=== PATIENT | male | born 1960 | race Caucasian/White ===

== ENCOUNTER 2020-08-05 11:33 | Emergency (ER) | payer MEDICAID, SELFPAY ==
[2020-08-05] VITALS (23 sets, daily range): BP systolic 123–220; BP diastolic 67–108; PULSE 80–102; RESP 16–23; TEMP 36.6; O2SAT 92–100; BMI 33.0
--- NOTE | 2020-08-05 11:42 | DI.RAD.S_ITS ---
PROCEDURE: XR CHEST 1V INDICATIONS: chest pain TECHNIQUE: One view of the chest was acquired. COMPARISON: None. FINDINGS: Surgical changes and devices: None. Lungs and pleura: Scattered subsegmental scarring and/or atelectasis. No acute consolidation. No pleural effusions or pneumothorax. Mediastinum: Mediastinal contours appear normal. Heart size is normal. Bones and chest wall: No suspicious bony lesions. Overlying soft tissues appear unremarkable. IMPRESSION: No acute disease. Dictated by: Jonas Woo M.D. on 08/05/2020 at 12:21 Approved by: Jonas Woo M.D. on 08/05/2020 at 12:21
[2020-08-05 11:51] LABS: Add Manual Diff / Slide Review NO; Basophils Absolute Auto 100 /uL (0-100); Basophils Percent Auto 1.3 % (0-2); Eosinophils Absolute Auto 100 /uL (0-450); Eosinophils Percent Auto 1.3 % (2-4); Hematocrit 53.4 % (41-53); Hemoglobin 18.3 g/dL (13.5-17.5); Lymphocytes Absolute Auto 1500 /uL (1100-4500); Lymphocytes Percent Auto 16.1 % (25-40); Mean Corpuscular HGB Conc 34.4 % (30-36); Mean Corpuscular Hemoglobin 33.8 PG (26-34); Mean Corpuscular Volume 98.3 fL (80-100); Monocytes Absolute Auto 700 /uL (0-900); Monocytes Percent Auto 7.9 % (3-14); Neutrophils Absolute Auto 6800 /uL (1500-7000); Neutrophils Percent Auto 73.4 % (50-75); Platelet Count 293 X10^3/uL (150-400); Red Blood Cell Count 5.43 X10^6/uL (4.5-5.9); Red Cell Distribution Width 14.4 % (11.6-14.8); White Blood Cell Count 9.3 X10^3/uL (4.5-11.0)
[2020-08-05 11:56] LABS: Prothrombin Time 11.7 SECONDS (10.1-12.7)
[2020-08-05] MEDS: ASPIRIN 81 MG CHEW TAB 324 MG PO (11:56)
[2020-08-05] MEDS: NITROGLYCERIN 0.4 MG SL TAB SL ×2 (11:56→12:24)
[2020-08-05 11:59] LABS: PTT Partial Thromboplastin Tim 34 SECONDS (26.4-36.2)
[2020-08-05 12:01] LABS: Alanine Aminotransferase 180 IU/L (<50); Albumin 4.6 g/dL (3.5-5.0); Albumin Globulin Ratio 1.2 (1.0-2.8); Alkaline Phosphatase 96 U/L (38-126); Aspartate Aminotransferase 95 IU/L (17-59); Bilirubin Total 0.7 mg/dL (0.2-1.3); Blood Urea Nitrogen 4 mg/dL (9-20); Calcium 9.9 mg/dL (8.4-10.2); Carbon Dioxide 24 mmol/L (22-32); Chloride 101 mmol/L (98-107); Creatine Kinase 75 U/L (55-170); Estimated Glomerular Filt Rate > 60.0 mL/min (>60); Globulin 3.9 g/dL (1.7-4.1); Glucose 122 mg/dL (70-100); HEMOLYSIS 24 (0-50); Lipase 73 U/L (23-300); Potassium 4.2 mmol/L (3.4-5.1); Sodium 135 mmol/L (137-145); Total Protein 8.5 g/dL (6.3-8.2)
[2020-08-05 12:12] LABS: NT-proBNP (BNP-Adult 18+) 62 pg/mL (<125); Troponin I < 0.012 ng/mL (0.01-0.034)
[2020-08-05 12:57] LABS: COVID19 - ADMIT (NP swab/PCR) Negative (Negative)
--- NOTE | 2020-08-05 13:38 | ED_ITS ---
HPI - Chest Pain General Chief Complaint: Chest Pain Stated Complaint: hypotensive, sent from [facility] Time Seen by Provider: 08/05/20 11:44 Source: patient Mode of arrival: Wheelchair Limitations: no limitations History of Present Illness HPI narrative: A 59-year-old male comes with complaint of chest pain/pressure that his been going on for the last several weeks. Patient states he has been waking up with sleep but also occurs during the daytime. It is worse with exertion but can happen while he is resting as well. Patient states he will have chest pressure his anterior chest occasionally goes to his left upper extremity but is usually just the anterior chest. He will feel short of breath. Be nauseated with diaphoresis. Patient has not any syncopal episodes. He initially denies any abdominal pain but on palpation is quite tender. He states that it has been going on for weeks if not months. He does wake up from sleep sometimes diaphoretic and feels like he has soaked through with sweat. Patient has not had any objective fevers but has had subjective fevers. He denies any cough cold or congestion. Patient denies any diarrhea or constipation. He denies any bright red blood or melanotic stools he denies any urinary symptoms. Patient does not follow up with a physician regularly last annual visit was in 1979. He has not any prior surgeries. Has not any daily medications. No allergies to medications. Depending on if he is working or staying home is half pack to pack and half daily his alcohol intake the a 6 pack weekly when he is working regularly up to a six-pack nightly when he is home. Denies any illicit. Patient does have family history of his mother having a ?hole in her heart?. His dad had multiple heart attacks with the 1st being at age 68. Patient is accompanied by his spouse. Related Data Home Medications Medication Instructions Recorded Confirmed [id number] 250 2 tab PO Q6H PRN 11/08/17 11/08/17 mg-250 mg-65 mg tablet Previous Rx's Medication Instructions Recorded oxycodone 5 mg tablet 5 mg PO Q4-6H PRN #10 tab 11/08/17 amlodipine 5 mg PO DAILY #30 tab 08/05/20 atorvastatin 20 mg PO BEDTIME #30 tab 08/05/20 Allergies Allergy/AdvReac Type Severity Reaction Status Date / Time codeine Allergy Verified 08/05/20 11:42 Review of Systems Review of Systems ROS Unobtainable: All systems reviewed & are unremarkable except as noted in HPI and below Patient History Social History Smoking Status: Current every day smoker alcohol intake: current Smoking Status: Current every day smoker alcohol intake frequency: holidays/special occasions only Substance Use Type: does not use Exam Narrative Exam Narrative: GENERAL: Alert and oriented x three, obese male in mild dist ress. HEENT: Head normocephalic, atraumatic, EOMI, pupils reactive, face symmetric, moist mucous membranes NECK: Supple, full range of motion CARDIOVASCULAR: Regular rate and rhythm without murmurs, rubs or gallops. JVD. No swelling bilateral lower extremities. RESPIRATORY: Breath sounds equal bilaterally, no wheezes rales or rhonchi. No tachypnea or accessory muscle uses ABDOMEN: Soft, patient has significant generalized abdominal tenderness. Normoactive bowel sounds all 4 quadrants. No guarding or rebound, rigidity, no mass. : No CVA tenderness EXTREMITIES: Normal range of motion, no clubbing or edema. Neurovascularly intact NEUROLOGICAL: Cranial nerves II through XII grossly intact. Moving all extremities SKIN: Warm, dry, no petechiae, no rashes or lesions. Initial Vital Signs Initial Vital Signs: Vital Signs Temperature 97.8 F 08/05/20 11:35 Pulse Rate 101 H 08/05/20 11:35 Respiratory Rate 22 08/05/20 11:35 Blood Pressure 220/108 H 08/05/20 11:35 Pulse Oximetry 100 08/05/20 11:35 Scores HEART Score Heart Score history: Highly Suspicious Heart Score EKG: Normal Heart Score Age: 45-64 years old Heart Score risk factors: 1-2 risk factors Heart Score troponin: < or = to normal limit Heart Score Total: 4 Course Orders Ordered: ED Orders 08/05/20 11:40 BNP [NT-proBNP (BNP-Adult 18+)] Stat Complete Blood Count AUTO DIFF Stat Comprehensive Metabolic Panel Stat Lipase Stat Partial Thromboplastin Time Stat Prothrombin Time INR Stat Troponin & CK Cardiac Panel Stat 08/05/20 11:42 XR chest 1V Stat EKG-12 Lead Stat 08/05/20 12:00 COVID19 - ADMIT ([employer] swab/PCR) Stat 08/05/20 14:05 CT angio chest abdomen pelvis Stat 08/05/20 14:06 EKG-12 Lead Stat 08/05/20 14:23 Troponin I Stat Discontinued Medications Aspirin (Aspirin 81 Mg Chew Tab) 324 mg PO NOW ONE Stop: 08/05/20 11:43 Last Admin: 08/05/20 11:56 Dose: 324 mg Documented by: YASMANY Atorvastatin Calcium (Atorvastatin 20 Mg Tablet) 80 mg PO NOW ONE Stop: 08/05/20 16:28 Last Admin: 08/05/20 17:13 Dose: 80 mg Documented by: ISMAEL Metoprolol Succinate (Metoprolol Er 25 Mg Tablet) 25 mg PO NOW ONE Stop: 08/05/20 16:28 Last Admin: 08/05/20 17:13 Dose: 25 mg Documented by: ISMAEL Nitroglycerin (Nitroglycerin 0.4 Mg Sl Tab) 0.4 mg SL [id number] PRN PRN Reason: Chest Pain Last Admin: 08/05/20 12:24 Dose: 0.4 mg Documented by: Admin: 08/05/20 11:56 Dose: 0.4 mg Documented by: YASMANY Nitroglycerin (Nitroglycerin Oint 1 Inch/Gm Oint...G.) 0.5 inch TOP NOW ONE Stop: 08/05/20 14:06 Last Admin: 08/05/20 14:25 Dose: 0.5 inch Documented by: YASMANY Reevaluation(s) Reevaluation #1: Better with nitro and nitropaste. Reviewed imaging. Patient's mass noted on CT angiography in the neck is aware that this is present. Unclear if he has ever had a workup but was encouraged to have this he was not aware of the renal system but was updated. Time: 16:18 Consultations Consultation #1: Dr. Carrasco recommends transfer to [facility]. Heparin gtt, ASA, Beta gaby, statin. Time: 16:27 Consultation #2: Dr. Villatoro Cardiology agrees with plan for transfer as we cannot stress test patient here over the weekend. He is equivocal in terms of starting heparin drip. Plan to chat with hospitalist and transfer. Time: 16:37 Consultation #3: Dr. Ross, hospitalist at [facility] accepts for transfer. Discussed cardiology's recommendations about heparin drip. Will defer and hold off this time. Time: 16:50 Vital Signs Vital signs: Vital Signs - 8 hr 08/05/20 11:35 08/05/20 11:41 08/05/20 11:48 Temperature 97.8 F Pulse Rate 101 H 102 H 93 H Respiratory Rate 22 20 20 Blood Pressure 220/108 H 172/92 H Pulse Oximetry 100 98 96 08/05/20 11:56 08/05/20 12:00 08/05/20 12:15 Temperature Pulse Rate 94 H 95 H 95 H Respiratory Rate 20 18 Blood Pressure 172/92 H 172/99 H 137/83 Pulse Oximetry 94 93 08/05/20 12:24 08/05/20 12:30 08/05/20 12:45 Temperature Pulse Rate 80 97 H 92 H Respiratory Rate 18 20 Blood Pressure 137/83 128/91 H 130/77 Pulse Oximetry 94 94 08/05/20 13:13 08/05/20 13:14 08/05/20 13:30 Temperature Pulse Rate 88 87 85 Respiratory Rate 19 20 Blood Pressure 123/84 125/67 Pulse Oximetry 92 93 93 08/05/20 14:00 08/05/20 14:25 08/05/20 14:30 Temperature Pulse Rate 89 90 82 Respiratory Rate 17 19 Blood Pressure 148/89 H 130/74 Pulse Oximetry 94 96 08/05/20 15:00 08/05/20 15:42 08/05/20 16:00 Temperature Pulse Rate 85 83 83 Respiratory Rate 23 16 20 Blood Pressure Pulse Oximetry 94 97 93 08/05/20 16:30 08/05/20 16:32 08/05/20 17:00 Temperature Pulse Rate 82 83 85 Respiratory Rate 21 20 20 Blood Pressure 153/99 H 151/91 H Pulse Oximetry 93 94 95 08/05/20 17:13 08/05/20 17:30 Temperature Pulse Rate 80 85 Respiratory Rate 19 Blood Pressure 151/91 H 150/89 H Pulse Oximetry 95 MDM - Chest Pain Lab Data Attestation: I reviewed the patient's lab results. Result diagrams: 08/05/20 11:40 08/05/20 11:40 Labs: Lab Results 08/05/20 08/05/20 08/05/20 Range/Units 11:40 11:40 11:40 WBC 9.3 (4.5-11.0) X10^3/uL RBC 5.43 (4.5-5.9) X10^6/uL Hgb 18.3 H (13.5-17.5) g/dL Hct 53.4 H (41-53) % MCV 98.3 (80-100) fL MCH 33.8 (26-34) PG MCHC 34.4 (30-36) % RDW 14.4 (11.6-14.8) % Plt Count 293 (150-400) X10^3/uL Neut % (Auto) 73.4 (50-75) % Lymph % (Auto) 16.1 L (25-40) % Gladwin % (Auto) 7.9 (3-14) % Eos % (Auto) 1.3 L (2-4) % Baso % (Auto) 1.3 (0-2) % Neut # (Auto) 6800 (3524-8439) /uL Lymph # (Auto) 1500 (5509-6085) /uL Gladwin # (Auto) 700 (0-900) /uL Eos # (Auto) 100 (0-450) /uL Baso # (Auto) 100 (0-100) /uL PT 11.7 (10.1-12.7) SECONDS INR 1.0 (0.9-1.3) APTT 34 (26.4-36.2) SECONDS Sodium 135 L (137-145) mmol/L Potassium 4.2 (3.4-5.1) mmol/L Chloride 101 (98-107) mmol/L Carbon Dioxide 24 (22-32) mmol/L BUN 4 L (9-20) mg/dL Creatinine 0.80 (0.66-1.25) mg/dL Estimated GFR > 60.0 (>60) mL/min BUN/Creatinine Ratio 5.0 L (6-22) Glucose 122 H (70-100) mg/dL Calcium 9.9 (8.4-10.2) mg/dL Total Bilirubin 0.7 (0.2-1.3) mg/dL AST 95 H (17-59) IU/L ALT 180 H (<50) IU/L Alkaline Phosphatase 96 (38-126) U/L Total Creatine Kinase 75 (55-170) U/L CK-MB (CK-2) TNP CK-MB (CK-2) Rel Index TNP Troponin I < 0.012 (0.01-0.034) ng/mL NT-Pro-B Natriuret Pep 62 (<125) pg/mL Total Protein 8.5 H (6.3-8.2) g/dL Albumin 4.6 (3.5-5.0) g/dL Globulin 3.9 (1.7-4.1) g/dL Albumin/Globulin Ratio 1.2 (1.0-2.8) Lipase 73 (23-300) U/L SARS-CoV-2 (PCR) (Negative) 08/05/20 08/05/20 Range/Units 12:00 14:23 WBC (4.5-11.0) X10^3/uL RBC (4.5-5.9) X10^6/uL Hgb (13.5-17.5) g/dL Hct (41-53) % MCV (80-100) fL MCH (26-34) PG MCHC (30-36) % RDW (11.6-14.8) % Plt Count (150-400) X10^3/uL Neut % (Auto) (50-75) % Lymph % (Auto) (25-40) % Gladwin % (Auto) (3-14) % Eos % (Auto) (2-4) % Baso % (Auto) (0-2) % Neut # (Auto) (8630-1694) /uL Lymph # (Auto) (2555-0977) /uL Gladwin # (Auto) (0-900) /uL Eos # (Auto) (0-450) /uL Baso # (Auto) (0-100) /uL PT (10.1-12.7) SECONDS INR (0.9-1.3) APTT (26.4-36.2) SECONDS Sodium (137-145) mmol/L Potassium (3.4-5.1) mmol/L Chloride (98-107) mmol/L Carbon Dioxide (22-32) mmol/L BUN (9-20) mg/dL Creatinine (0.66-1.25) mg/dL Estimated GFR (>60) mL/min BUN/Creatinine Ratio (6-22) Glucose (70-100) mg/dL Calcium (8.4-10.2) mg/dL Total Bilirubin (0.2-1.3) mg/dL AST (17-59) IU/L ALT (<50) IU/L Alkaline Phosphatase (38-126) U/L Total Creatine Kinase (55-170) U/L CK-MB (CK-2) CK-MB (CK-2) Rel Index Troponin I < 0.012 (0.01-0.034) ng/mL NT-Pro-B Natriuret Pep (<125) pg/mL Total Protein (6.3-8.2) g/dL Albumin (3.5-5.0) g/dL Globulin (1.7-4.1) g/dL Albumin/Globulin Ratio (1.0-2.8) Lipase (23-300) U/L SARS-CoV-2 (PCR) Negative (Negative) Imaging Data Chest x-ray: Radiologist's Impression: [address] [id number] ReportSigned Patient: Butch Dhaliwal PMR#: [id number]: 2Acct:[id number]/Sex: 59 / MDate of Service: 08/05/20Loc: EDAccession Number: [id number] Procedure: XR chest 1V Ordering Provider: Amberly Gonzalez D.O. PROCEDURE: XR CHEST 1V INDICATIONS: chest pain TECHNIQUE: One view of the chest was acquired. COMPARISON: None. FINDINGS: Surgical changes and devices: None. Lungs and pleura: Scattered subsegmental scarring and/or atelectasis. No acute consolidation. No pleural effusions or pneumothorax. Mediastinum: Mediastinal contours appear normal. Heart size is normal. Bones and chest wall: No suspicious bony lesions. Overlying soft tissues appear unremarkable. IMPRESSION: No acute disease. Dictated by: Jonas Woo M.D. on 08/05/2020 at 12:21 Approved by: Jonas Woo M.D. on 08/05/2020 at 12:21 ECG Data Attestation: I personally reviewed and interpreted this ECG as follows: Prior ECG tracings: not available for review Interpretation: Sinus rhythm rate of 99, IL 152 QRS of 94 QTC of 477. No acute elevation appreciated. Q-wave in lead 3. RSR is noted in AVF. Patient does not have prior for comparison. EKG2-sinus rhythm rate of 80, IL 148, QRS of 92 QTC of 465. No acute ST elevation or depression noted. MDM Narrative Medical decision making narrative: This is a 59-year-old male who has consistent with angina but on further examination is quite tenderness abdominal exam patient has generalized tenderness but he describes the pain as being localized more so right lower quadrant. He was very hypertensive on arrival. His chest pressure improved with nitro and his pressure in general improved to 125. Patient likely has multiple medical issues and has not seen a physician in sev eral decades. CT angio was obtained secondary to hypertension with chest pain and palpable abdominal pain on exam. CTA shows a mass in the neck which patient's was aware of on recommend a follow-up. He is also told that his renal cyst. Labs show slightly elevated hemoglobin, ALT AST of 95 and 180 with a negative troponin and BNP. Chest x-ray did not show any acute changes or mediastinal widening. Covid is negative. After discussion with Cardiology plan for transfer as we do not have ability to stress test over the weekend. There was a difference in opinion from a master printer about hurting heparin drip so was held after discussion with the hospitalist as patient's troponins are not po sitive and he has not had continuing or worsening chest pain here in the department or any new EKG changes. After I had spoken to Cardiology as well as the hospitalist for transfer. Patient elects not to transfer because he is concerned about financial aspects of an ambulance ride. Discussed I cannot send him by private auto. We did discuss that if he were to have a heart attack this would be more expensive or potentially fatal. Patient still elected to return home. He is aware that I am quite concerned about his cardiac health that he could have a heart attack and he time he is agreeable to returning at any point. He is also agreeable to starting medication for blood pressure, a statin as well as a daily aspirin. And I also discussed with the master printer who is aware of the change in patient's status and that they are happy to follow-up with him in the office. Patient's was at bedside further discussion and patient told that he is welcome to return any time. Discharge Plan Departure Patient Disposition: Left Against Medical Advice Clinical Impression: Mass in neck, Chest pain, Renal cyst Activity Restrictions/Additional Instructions: I highly recommend that you be admitted for stress testing and cardiac evaluation. I understand that being transferred an ambulance or even spending the night hospital is very expensive. I think that is likely that you are going to have a heart attack any day now and your really do need to be in the hospital for stress testing and probably catheterization. You can return at any time. Included is contact information for Cardiology to set up outpatient evaluation. I spoke with Dr. Villatoro master printer he is aware that you are not transferring to [facility] today and is happy to see you in the clinic he asked that you please call the office Saturday morning for Please take an aspirin 324mg daily I also recommend starting a cholesterol medication and medication to help control your blood pressure and protect your heart daily. Prescription for both of these were sent to the pharmacy. Prescription is [facility] in [place]. Return for new or worsening symptoms, new chest pain or pressure, shortness of breath, lightheadedness or passing out, sweats, persistent nausea or vomiting, new or worsening abdominal pain, back or flank pain or other new concerning symptoms. Prescriptions: New amlodipine 5 mg tablet 5 mg PO DAILY Qty: 30 RF: 0 atorvastatin 20 mg tablet 20 mg PO BEDTIME Qty: 30 RF: 0 No Action [id number] [Excedrin Migraine] 250-250-65 mg tablet 2 tab PO Q6H PRNRF: 0 oxycodone 5 mg tablet 5 mg PO Q4-6H PRN (Reason: pain) Qty: 10 RF: 0 Referrals: Rell Villatoro MD [Physician] - Stand Alone Forms: Against Medical Advice
--- NOTE | 2020-08-05 14:05 | DI.CT.S_ITS ---
PROCEDURE: CT ANGIO CHEST ABDOMEN PELVIS INDICATIONS: intermittent chest pain, abd, htn. TECHNIQUE: Precontrast 5 mm thick sections acquired from the lung apices to the iliac crests. After the administration of intravenous contrast, 2.5 mm thick sections again acquired from the lung apices to the iliac crests. Maximum intensity projection (MIP) oblique sagittal and coronal reformats were then acquired. For radiation dose reduction, the following was used: automated exposure control. COMPARISON: None. FINDINGS: Image quality: Excellent. AORTA: Intramural hematoma: Absent. Maximum hematoma thickness: Not applicable. Focal contrast enhancement: Intramural blood pool (< 2 mm neck or imperceptible communication with aortic lumen): Absent. Ulcer-like projection (broad communication with aortic lumen > 3 mm): Absent. . Dissection: Absent. Jarret classification: Not applicable Maximum aortic diameter: No aneurysm found. Periaortic hematoma: Absent. . CHEST: Lungs and pleura: No acute airspace opacities. No pleural effusions or pneumothorax. Central and peripheral airways are patent and normal in caliber. Mediastinum: Heart size is normal. No pericardial effusion. No mediastinal or hilar adenopathy by size criteria. Central pulmonary arteries are normal in size. Esophagus is normal in caliber. No hiatal hernias. Bones and chest wall: No axillary adenopathy by size criteria. Thyroid gland appears normal. There is a soft tissue nodule on the left at the same axial level as the thyroid gland, cutaneous in origin by appearance, measuring up to 1.7 x 2.0 cm. This is best seen on series 5, image 7. No suspicious bony lesions. No vertebral body compression fractures. ABDOMEN: Vasculature: Celiac trunk and mesenteric arteries are patent. Renal arteries are also patent. Solid organs: Liver is normal in size and enhancement. The liver appears diffusely fatty infiltrated Gallbladder appears normal . Biliary system is non dilated. Pancreas enhances normally. Spleen is normal in size and enhancement. No adrenal nodules. Both kidneys are normal in size and enhancement, without hydronephrosis. There is an exophytic presumed cyst projecting forward from the lower anterior cortex of the right kidney. This has a 21 Hounsfield unit radiodensity before contrast and 22 Hounsfield units after. This does not indicate viable internal tissue. Peritoneum and bowel: No free fluid or air. Bowel loops are normal in caliber and wall thickness. Nodes and vessels: No retroperitoneal or mesenteric adenopathy by size criteria. Inferior vena cava is normal in morphology. Miscellaneous: No ventral hernias. PELVIS: Genitourinary: Bladder wall thickness is normal. Miscellaneous: No inguinal hernias or adenopathy. No ventral hernias. Bones: No suspicious bony lesions. No vertebral body compression fractures. IMPRESSION: No aneurysm or dissection found. Please correlate clinically related to a left-sided cutaneous soft tissue mass at the same axial level as the left thyroid lobe, measuring up to 1.7 x 2.0 cm. This is an unusual finding and could represent a malignant mass. Hepatic steatosis. Incidental note made of a mildly hyperdense cyst projecting anteriorly from the lower cortex of the anterior right kidney. Dictated by: Dwain Nicholson M.D. on 08/05/2020 at 15:06 Approved by: Dwain Nicholson M.D. on 08/05/2020 at 15:14
[2020-08-05] MEDS: NITROGLYCERIN OINT 1 INCH/GM OINT...G. 0.5 INCH TOP (14:25)
[2020-08-05 14:52] LABS: Troponin I < 0.012 ng/mL (0.01-0.034)
[2020-08-05] MEDS: METOPROLOL ER 25 MG TABLET PO (17:13)
[2020-08-05] MEDS: ATORVASTATIN 20 MG TABLET 80 MG PO (17:13)
== END 2020-08-05 17:52 | disposition left against medical advice (07) ==
PROVIDERS: Emergency Provider Emergency Medicine
DX: R22.1 Localized swelling, mass and lump, neck (principal); R07.9 Chest pain, unspecified; N28.1 Cyst of kidney, acquired; R06.02 Shortness of breath; Z20.822 Contact with and (suspected) exposure to COVID-19
CPT/HCPCS: 36415; 71045; 71275; 74174; 80053; 82550; 83690; 83880; 84484; 85025; 85610; 85730; 87635; 93005; 99284; C9803

== ENCOUNTER → 2020-11-07 07:37 | Outpatient (CLI) | payer OTHER, MEDICAID, SELFPAY ==
[2020-11-07 08:37] LABS: Cholesterol 249 mg/dL (140-199); HDL Cholesterol 35 mg/dL (40-60); LDL Cholesterol Calculated 172 mg/dL (<100); Triglycerides 212 mg/dL (35-150)
[2020-11-07 09:08] LABS: Prostate Specific Antigen Scrn 1.04 ng/mL (0.1-4.0)
[2020-11-07 09:14] LABS: Vitamin D 25 Hydroxy (D3) 14.5 ng/mL (30.0-100.0)
[2020-11-07 09:29] LABS: TSH w/ Reflex to FT4 5.33 uIU/mL (0.47-4.68)
[2020-11-07 09:54] LABS: Free T4, Direct Thyroxine 1.03 ng/dL (0.78-2.19)
== END ==
PROVIDERS: PCP Student in an Organized Health Care Education/Training Program; Referring Provider Student in an Organized Health Care Education/Training Program; Visit Provider Student in an Organized Health Care Education/Training Program
DX: Z13.220 Encounter for screening for lipoid disorders (principal); I20.8 Other forms of angina pectoris; Z12.5 Encounter for screening for malignant neoplasm of prostate; F41.1 Generalized anxiety disorder; E55.9 Vitamin D deficiency, unspecified
CPT/HCPCS: 36415; 80061; 82306; 84439; 84443; G0103

== ENCOUNTER → 2020-11-09 08:30 | Outpatient (CLI) | payer OTHER, MEDICAID, SELFPAY ==
[2020-11-09 13:37] LABS: COVID19 -Nasal RAPID Negative (Negative)
== END ==
PROVIDERS: PCP Student in an Organized Health Care Education/Training Program; Visit Provider Nurse Practitioner
DX: Z01.812 Encounter for preprocedural laboratory examination (principal); Z20.822 Contact with and (suspected) exposure to COVID-19
CPT/HCPCS: 87635; C9803

== ENCOUNTER → 2020-11-10 08:10 | Outpatient (CLI) | payer OTHER, MEDICAID, SELFPAY ==
--- NOTE | 2020-11-10 08:56 | PM.TREADMILL ---
Cardiac Stress Test Report Referral & Results Date Patient Seen: 11/10/20 Time Patient Seen: 08:45 Requesting provider: Calos Staton Indication: Angina Rest ECG: NSR Procedure Note: Today following both written and verbal informed consent, the patient was exercised according to a standard [employer] protocol. The patient exercised for a total of 3 minute 16 seconds achieving a maximum heart rate of 156. Patient's maximum systolic blood pressure was 180. This was an estimated 4.6 METs. Exaggerated hemodynamic response to exercise. Dyspnea, but no signs or symptoms of angina. Markedly reduced exercise capacity (FA I +50% on active scale). Minimal ST changes in multiple leads almost immediately resolved at rest. Occasional PVCs during peak exercise. Impression: Intermediate risk of ischemia. Poor functional status. Recommend follow-up testing. Flowers treadmill score of 3 is correlated with 90% survival over 5 years from cardiac causes of mortality. Please note: Actual ECG tracings can be found in the PACS system.
== END ==
PROVIDERS: PCP Student in an Organized Health Care Education/Training Program; Referring Provider Student in an Organized Health Care Education/Training Program; Visit Provider Student in an Organized Health Care Education/Training Program
DX: I20.8 Other forms of angina pectoris (principal)
CPT/HCPCS: 93016; 93017; 93018

== ENCOUNTER → 2021-01-16 13:13 | Outpatient (CLI) | payer OTHER, MEDICAID, SELFPAY ==
--- NOTE | 2021-01-16 13:14 | DI.US.S_ITS ---
PROCEDURE: US SOFT TISSUE HEAD AND NECK INDICATIONS: SOFT TISSUE MASS LEFT UPPER CHEST TECHNIQUE: Real-time scanning was performed of the neck region of interest, with image documentation. COMPARISON: [facility], CT, CT ANGIO CHEST ABDOMEN PELVIS, 08/05/2020, 14:15. FINDINGS: Solid-appearing a vascular mass corresponding to the palpable abnormality measuring up to 2.9 cm. IMPRESSION: Nonspecific solid soft tissue mass. Differential would include both benign and malignant etiologies. If indicated, contrast-enhanced soft tissue MRI could be performed for further assessment. Dictated by: Saman Salgado Mackenzie Interpreted: Micky Sierra MD on 01/16/2021 at 14:56 Transcribed by: TIERRA on 01/16/2021 at 14:58 Approved by: Micky Sierra M.D. on 01/16/2021 at 16:24
== END ==
PROVIDERS: PCP Student in an Organized Health Care Education/Training Program; Referring Provider Student in an Organized Health Care Education/Training Program; Visit Provider Student in an Organized Health Care Education/Training Program
DX: R22.1 Localized swelling, mass and lump, neck (principal)
CPT/HCPCS: 76536

== ENCOUNTER → 2021-02-23 12:29 | Outpatient (CLI) | payer OTHER, MEDICAID, SELFPAY ==
--- NOTE | 2021-02-23 12:54 | DI.CT.S_ITS ---
PROCEDURE: CT SOFT TISSUE NECK W CON INDICATIONS: Re-eval soft tissue mass seen on u/s TECHNIQUE: After the administration of intravenous contrast, 3.0 mm axial sections acquired from the sella to the aortic arch. Additional oblique axial 3.0 mm sections acquired through the pharynx. 3 mm thick coronal and sagittal reformats were generated. For radiation dose reduction, the following was used: automated exposure control. COMPARISON: [facility], CT, CT ANGIO CHEST ABDOMEN PELVIS, 08/05/2020, 14:15. [facility], US, US SOFT TISSUE HEAD AND NECK, 01/16/2021, 13:35. FINDINGS: Image quality: Excellent. Lymph nodes: Scattered nonenlarged deep cervical lymph nodes present. No evidence of adenopathy. Vessels: Visualized vasculature appears patent. Neck spaces: The oropharynx, nasopharynx, and pharynx demonstrate no mucosal lesions. The vocal cords, false vocal cords, pyriform sinuses, epiglottis, vallecula, and tongue base all appear normal. Extramucosal spaces appear unremarkable. Exophytic dermal mass lesion is again noted measuring 1.7 x 2.0 cm in the upper left anterior chest wall, similar to the prior exams. Glands: The parotid and submandibular glands appear normal. Thyroid gland unremarkable. Miscellaneous: Visualized brain and orbits appear normal. Lung apices appear clear. Superficial soft tissues appear normal. Bones: No suspicious bony lesions. Visualized sinuses and mastoids appear unremarkable. Multilevel degenerative disc disease and arthropathy results in at least moderate central stenosis at C6-7 IMPRESSION: 1. Stable dermal exophytic mass lesion in the anterior left upper chest wall. Excisional biopsy advised. 2. Lower cervical degenerative disc disease Dictated by: Edi Reeves M.D. on 02/23/2021 at 16:58 Approved by: Edi Reeves M.D. on 02/23/2021 at 17:15
== END ==
PROVIDERS: PCP Student in an Organized Health Care Education/Training Program; Referring Provider Student in an Organized Health Care Education/Training Program; Visit Provider Student in an Organized Health Care Education/Training Program
DX: R22.1 Localized swelling, mass and lump, neck (principal); M50.323 Other cervical disc degeneration at C6-C7 level; M48.02 Spinal stenosis, cervical region; M47.812 Spondylosis without myelopathy or radiculopathy, cervical region
CPT/HCPCS: 70491

== ENCOUNTER → 2021-05-23 08:57 | Outpatient (CLI) | payer OTHER, MEDICAID, SELFPAY ==
[2021-05-23 09:25] LABS: COVID19 -Nasal RAPID Negative (Negative)
== END ==
PROVIDERS: PCP Student in an Organized Health Care Education/Training Program; Visit Provider Surgery
DX: Z20.822 Contact with and (suspected) exposure to COVID-19; Z01.812 Encounter for preprocedural laboratory examination
CPT/HCPCS: 87635; C9803

== ENCOUNTER 2021-05-25 13:21 | Day surgery (SDC) | payer OTHER, MEDICAID, SELFPAY ==
[2021-05-22 15:11] VITALS: BMI 31.4
--- NOTE | 2021-05-25 | PATH_ITS ---
[facility] Accession Number: [id number] No. of containers..01 Tissue . 01 Material submitted: . chest - LEFT CHEST LESION . 01 Diagnosis: Left Chest, Excision: Epidermal inclusion cyst. MRV 05/29/2021 1230 Local . 01 Electronically signed: . Gabino Barbour MD, Dermatopathologist NPI- [id number] . 01 Gross description: . Received in formalin, labeled with the patient's name and designated 1. Left chest lesion is a 4.2 x 1.5 cm portion of skin and soft tissue, excised to a depth up to 2.0 cm, oriented with a suture designating lateral (redesignated 12 o'clock) and inked as follows: 12-3 o'clock yellow, 3-6 o'clock green, 9 o'clock half black. The skin is surfaced with a 3.0 x 2.0 x 1.3 cm raised polypoid and focally disrupted mass with extruded anton-white friable material. Sectioning reveals a circumscribed anton-white cyst filled with yellow-anton debris that extends to within 0.1 cm of the 3 and 9 o'clock margins, 0.6 cm from the 6 o'clock tip, and 0.6 cm from the 12 o'clock tip, 0.8 cm from the nearest deep margin. No additional lesions are identified. [place] sections are submitted in A1-A3 (tips in A1). (ELKE:[id number]) /MRV 05/28/2021 1311 Local . 01 Pathologist provided ICD-10: L72.0 . 01 CPT . 193141 Specimen Comment: A courtesy copy of this report has been sent to [phone] Performed at: 01 [facility] [address] [facility], [place], [place] [id number] MD Ramu Tam MD Phone: [phone]
[2021-05-25] MEDS: LACTATED RINGERS 1,000 ML 42 ML IV (13:49)
[2021-05-25 13:50] VITALS: BP 164/104; PULSE 91; RESP 19; TEMP 35.7; O2SAT 96; BMI 31.4
--- NOTE | 2021-05-25 15:38 | PM.HP.1 ---
History of Present Illness History of Present Illness Date Patient Seen: 05/25/21 Time Patient Seen: 15:38 Chief complaint: SDC Narrative: Terence is a 60-year-old man who has had a exophytic skin lesion on his left upper chest for many years. Please see office note from March for details. Patient History Family & Social History Social History: household members spouse Tobacco & Substance use: Tobacco type cigarettes Smoking Status Current every day smoker Smoking packs per day 0.5 alcohol intake current alcohol intake frequency holiday/special occasion Substance Use Type does not use Meds Home Medications and Allergies Home Medications Medication Instructions Recorded Confirmed Type apqimhp-pypfgonyobqsz-dwftafgm 250 2 tab PO Q6H PRN 11/08/17 05/22/21 History mg-250 mg-65 mg tablet (Excedrin Migraine) atorvastatin 40 mg tablet 40 mg PO BEDTIME #90 tab 11/08/20 05/25/21 Rx carvedilol 12.5 mg tablet 12.5 mg PO BID #180 tab 12/08/20 05/25/21 Rx diazepam 10 mg tablet 10 mg PO BEDTIME #30 tab 01/05/21 05/25/21 Rx alprazolam 1 mg tablet (Xanax) 1 mg PO ONCE PRN #1 tab 05/23/21 05/25/21 Rx quetiapine 50 mg tablet 50 mg PO BEDTIME #30 tab 05/23/21 05/25/21 Rx Allergies Allergy/AdvReac Type Severity Reaction Status Date / Time codeine Allergy Mild Verified 05/25/21 13:58 Exam Vital Signs (past 8 hours): - 05/25/21 13:50 Temperature 96.2 F L Pulse Rate 91 H Respiratory Rate 19 Blood Pressure 164/104 H Pulse Oximetry 96 Oxygen Delivery Method Room Air Narrative Exam Narrative: No acute distress Skin lesion on the left upper chest is unchanged from prior examination Assessment & Plan Assessment and plan (1) Abnormal skin growth: Status: Acute Plan Plan to remove the abnormal left upper chest skin growth in the operating room with Anesthesia. All plan to remove this in a simple elliptical fashion with primary closure. He understands that if the lesion comes back malignant we may require a wide local excision with flap closure at a later date. No antibiotics are required for this simple class 1 wound. COVID-19 COVID-19 status: Negative Result date/Date tested (Pos, Neg/Pending): 05/23/21 Time Spent With Patient Critical Care time: I spent a total of [] minutes of critical care time on this patient's care today; this time is exclusive of procedural time.
--- NOTE | 2021-05-25 16:49 | SUR.OPER ---
Supine on padded OR bed, head on pillow, arms secured on padded arm boards at <90 degrees abduction, legs uncrossed, safety belt at thigh, tape over blanket over lower legs.
[2021-05-25] MEDS: LIDOCAINE 1% W/EPI 20 ML INJ (16:58)
[2021-05-25] MEDS: BUPIVACAINE 0.25% (PF) VIAL 30 ML INJ (16:59)
[2021-05-25 17:23] VITALS: BP 145/98; PULSE 76; RESP 16; TEMP 36.2; O2SAT 94
--- NOTE | 2021-05-25 17:23 | PM.OP.1 ---
Operative Date/Time/Diagnoses Date of procedure: 05/25/21 Time of procedure: 17:23 Pre-op diagnosis: Left chest skin lesion Post-op diagnosis: same Procedure & Clinicians Procedure: Excisional biopsy of left chest skin lesion Same procedure as scheduled: Yes Surgeon: Kenn Cordova Anesthesia Type: General Operative Notes Estimated Blood Loss (mL): 15 Procedure in detail: The patient was brought to the operating room, placed on the table in the supine position with the left arm tucked in general anesthesia was induced via LMA. No antibiotics were indicated. The lesion measured 3 cm x 2 cm x 2 cm and was located over the media-inferior aspect of the left clavicle. A time-out was performed and the left chest and neck were prepped and draped in the usual fashion. An elliptical incision was created measuring 7 cm x 2.5 cm and oriented parallel to the clavicle. The lesion was completely excised and there did not appear to be any deep component lesion. A single silk suture was placed along the lateral-inferior portion of the specimen. Marcaine was injected into the subcutaneous tissue and dermis around the incision. The wound was then closed in layers using multiple interrupted 3-0 Vicryl dermal sutures followed by a running 4-0 Monocryl subcuticular closure. The specimen was sent in formalin. Post-operative Condition: stable Disposition: PACU
[2021-05-25 17:28] VITALS: BP 153/100; PULSE 75; RESP 15; O2SAT 95
[2021-05-25 17:33] VITALS: BP 153/95; PULSE 74; RESP 15; O2SAT 94
[2021-05-25 17:45] VITALS: BP 143/101; PULSE 75; RESP 15; TEMP 36.1; O2SAT 95
[2021-05-25 17:59] VITALS: BP 152/97; PULSE 77; RESP 15; O2SAT 99
--- NOTE | 2021-05-25 17:59 | SUR.PHASEII ---
Discharge instructions reviewed with pt and he verbalized understanding.
== END 2021-05-25 18:15 | disposition home or self-care (01) ==
PROVIDERS: PCP Student in an Organized Health Care Education/Training Program; Referring Provider Surgery; Visit Provider Surgery
PROC: (CPT 11406; principal; 2021-05-25 15:00)
DX: L72.0 Epidermal cyst (principal); F17.210 Nicotine dependence, cigarettes, uncomplicated; I10 Essential (primary) hypertension
CPT/HCPCS: 11406; 12032; J2250; J2704; J3010

== ENCOUNTER → 2021-10-26 11:02 | Outpatient (CLI) | payer OTHER, MEDICAID, SELFPAY ==
[2021-10-26 14:30] LABS: Add Manual Diff / Slide Review NO; Basophils Absolute Auto 100 /uL (0-100); Eosinophils Absolute Auto 300 /uL (0-450); Eosinophils Percent Auto 3.4 % (2-4); Hematocrit 47.4 % (41-53); Hemoglobin 16.8 g/dL (13.5-17.5); Lymphocytes Absolute Auto 2000 /uL (1100-4500); Lymphocytes Percent Auto 20.1 % (25-40); Mean Corpuscular HGB Conc 35.4 % (30-36); Mean Corpuscular Volume 101.5 fL (80-100); Monocytes Absolute Auto 900 /uL (0-900); Monocytes Percent Auto 9.2 % (3-14); Neutrophils Absolute Auto 6800 /uL (1500-7000); Neutrophils Percent Auto 66.3 % (50-75); Platelet Count 265 X10^3/uL (150-400); Red Blood Cell Count 4.67 X10^6/uL (4.5-5.9); Red Cell Distribution Width 14.6 % (11.6-14.8); White Blood Cell Count 10.2 X10^3/uL (4.5-11.0)
[2021-10-26 14:56] LABS: Alanine Aminotransferase 50 IU/L (<50); Albumin 4.3 g/dL (3.5-5.0); Albumin Globulin Ratio 1.5 (1.0-2.8); Alkaline Phosphatase 82 U/L (38-126); Aspartate Aminotransferase 47 IU/L (17-59); BUN Creatinine Ratio 7.5 (6-22); Bilirubin Total 0.8 mg/dL (0.2-1.3); Blood Urea Nitrogen 6 mg/dL (9-20); Calcium 9.2 mg/dL (8.4-10.2); Carbon Dioxide 27 mmol/L (22-32); Chloride 100 mmol/L (98-107); Cholesterol 169 mg/dL (140-199); Estimated Glomerular Filt Rate > 60 mL/min (>60); Globulin 2.9 g/dL (1.7-4.1); Glucose 98 mg/dL (80-110); HDL Cholesterol 39 mg/dL (40-60); HEMOLYSIS < 15 (0-50); LDL Cholesterol Calculated 97 mg/dL (<100); Potassium 4.5 mmol/L (3.4-5.1); Sodium 136 mmol/L (137-145); Total Protein 7.2 g/dL (6.3-8.2); Triglycerides 167 mg/dL (35-150)
[2021-10-26 15:29] LABS: TSH w/ Reflex to FT4 4.44 uIU/mL (0.47-4.68)
== END ==
PROVIDERS: PCP Student in an Organized Health Care Education/Training Program; Referring Provider Student in an Organized Health Care Education/Training Program; Visit Provider Student in an Organized Health Care Education/Training Program
DX: E55.9 Vitamin D deficiency, unspecified (principal); F31.81 Bipolar II disorder; F41.1 Generalized anxiety disorder; I10 Essential (primary) hypertension; Z79.899 Other long term (current) drug therapy
CPT/HCPCS: 36415; 80053; 80061; 82306; 84443; 85025

== ENCOUNTER → 2022-03-26 16:09 | Outpatient (ROUT) | payer OTHER, MEDICAID, SELFPAY ==
[2022-03-26 16:28] LABS: Appearance Urine UA CLEAR; Bilirubin Urine UA NEGATIVE (NEGATIVE); Color Urine UA YELLOW; Glucose Urine UA NEGATIVE (Negative); Ketones Urine UA NEGATIVE (NEGATIVE); Leukocyte Esterase Urine UA NEGATIVE (NEGATIVE); Nitrite Urine UA NEGATIVE (Negative); Occult Blood Urine UA NEGATIVE (Negative); Protein Urine UA NEGATIVE (Negative); Urobilinogen Urine UA 0.2 E.U./dL (0.2)
[2022-03-26 16:44] LABS: Bacteria Urine Occasional (0-1); Culture Indicated Urine Cult Not Indicated; RBC Urine None Seen (0-5/HPF); Squamous Epithelial Cell Urine 1-5 /HPF (0-5/HPF); WBC Urine None Seen (0-5/HPF)
== END ==
PROVIDERS: PCP Student in an Organized Health Care Education/Training Program; Visit Provider Student in an Organized Health Care Education/Training Program
DX: R10.9 Unspecified abdominal pain (principal)
CPT/HCPCS: 81001

== ENCOUNTER 2022-09-28 19:44 | Emergency (ER) | payer OTHER, MEDICAID, SELFPAY ==
[2022-09-28 20:05] VITALS: BP 167/98; PULSE 106; RESP 18; TEMP 36.6; O2SAT 96; BMI 26.4
--- NOTE | 2022-09-28 23:08 | ED_ITS ---
HPI - General Adult General Chief complaint: Dental/Oral Stated complaint: lt jaw swollen/BP high Time Seen by Provider: 09/28/22 23:08 Source: patient Mode of arrival: Ambulatory History of Present Illness HPI narrative: 61-year-old gentleman with a history of hypertension hyperlipidemia, anxiety disorder, bipolar disorder with severe dental caries and has been having difficulty in getting into see a dentist needs to have all the teeth pulled but also need surgical extractions in his insurance isn't going to cover that. In the meantime over the last 4 days he is had increasing left lower jaw pain and over the last 24 hours has developed some swelling over the left angle of the jaw. No fevers but pain has been difficult to control. He has been using 600 mg of ibuprofen and ice. He is not noticing in the specific drainage. Related Data Home Medications Medication Instructions Recorded Confirmed jqropxj-rhgphmeqbvzwh-xyophixg 250 2 tab PO Q6H PRN Migraine Headache 11/08/17 03/26/22 mg-250 mg-65 mg tablet (Excedrin Migraine) Previous Rx's Medication Instructions Recorded atorvastatin 40 mg tablet 40 mg PO BEDTIME #90 tabs 09/04/21 carvedilol 12.5 mg tablet 12.5 mg PO BID #180 tabs 12/01/21 diazepam 10 mg tablet 10 mg PO BEDTIME #30 tabs 02/05/22 chlorhexidine gluconate 0.12 % 15 ml mucous membrane DAILY #473 mL 03/26/22 mouthwash sertraline 50 mg tablet 75 mg PO DAILY #90 tabs 06/26/22 quetiapine 100 mg tablet 100 mg PO BEDTIME #90 tabs 08/13/22 amoxicillin 500 mg capsule 500 mg PO TID #15 caps 09/28/22 oxycodone-acetaminophen 5 mg-325 1 tab PO Q6H PRN pain #10 tabs 09/28/22 mg tablet Allergies Allergy/AdvReac Type Severity Reaction Status Date / Time codeine Allergy Mild Verified 03/26/22 15:36 Review of Systems Review of Systems Narrative: Pertinent positive and negative findings as per HPI Patient History Medical History (Updated 09/28/22 @ 23:21 by Shelly Deshpande MD) Bipolar 2 disorder Dental caries Essential hypertension, benign Generalized anxiety disorder Major depressive disorder, recurrent episode, severe Mixed hyperlipidemia Social History marital status: household members: spouse Smoking Status: Current every day smoker alcohol intake: current Smoking Status: Current every day smoker alcohol intake frequency: holidays/special occasions only Substance Use Type: does not use Exam Initial Vital Signs Initial Vital Signs: Vital Signs Temperature 98 F 09/28/22 20:05 Pulse Rate 106 H 09/28/22 20:05 Respiratory Rate 18 09/28/22 20:05 Blood Pressure 167/98 H 09/28/22 20:05 Pulse Oximetry 96 09/28/22 20:05 Oxygen Delivery Method Room Air 09/28/22 20:05 General: Alert appropriate in no acute distress HEENT: Significantly poor dentition with gingival disease, multiple missing teeth, multiple fractured teeth area of interest likely as an abscess from a fractured 1st molar with swelling lateral to the angle of the jaw no significant submandibular swelling Respiratory: Able to speak in full sentences, no obvious respiratory distress Skin: No obvious rashes, warm and dry Neurologic: Grossly intact no obvious asymmetries or abnormalities Psych: appropriate insight and affect, cooperative Course Vital Signs Vital signs: Vital Signs - 8 hr 09/28/22 20:05 Temperature 98 F Pulse Rate 106 H Respiratory Rate 18 Blood Pressure 167/98 H Pulse Oximetry 96 Oxygen Delivery Method Room Air Medical Decision Making MDM Narrative Medical decision making narrative: CC: Dental pain with swelling, acute issue uncertain prognosis Complicating co-morbidities: Very poor dentition needing all teeth pulled, bipolar type 2, hypertension hyperlipidemia, generalized anxiety disorder Data collected from: patient, spouse Social determinants of health that may influence the patients condition: Insurance issues and difficulty access and care Differential considered: Dental abscess, Buster's angina Exam documented above, pertinent findings include: Very poor dental hygiene multiple broken teeth fullness to the angle of the jaw on the left side without obvious fluctuance or area that would be amenable to drainage Discussion: 61-year-old gentleman with dental abscess in the setting of severe dental decay with increasing pain. 600 mg of ibuprofen is no longer effective. Will start him on amoxicillin, he is given some Zofran as he complains of chronic nausea secondary to the pain and will give him a very brief course of Percocet. We savanah ked about addiction issues and not mixing narcotics with alcohol. He understands that this is temporizing treatment and definitive treatment is only going to be achieved by having all of his teeth pulled. Questions are answered and he is safe for discharge Discharge Plan Departure Patient Disposition: Home Clinical Impression: Dental abscess Fracture of tooth Qualifiers: Encounter type: initial encounter Fracture type: closed Qualified Code(s): S02.5XXA - Fracture of tooth (traumatic), initial encounter for closed fracture Instructions: DI for Dental Pain Activity Restrictions/Additional Instructions: Thank you for coming in today. I am sorry that you are suffering with this dental pain. I am going to give you 5 days of amoxicillin to help with the infection, Using 400 mg of ibuprofen (2 yslz-lqn-jaoqovl pills) and 1 Tylenol every 6 hours can be very helpful in controlling pain. For severe pain you can use ibuprofen plus 1-2 Percocet. If you do choose to use narcotic, please make sure you are adding a stool softener as it will cause constipation. Please try to reschedule your dental extraction appointment. Definitive treatment for this is going to have your teeth removed. Antibiotic treatment is temporary. I wish you the best Prescriptions: New amoxicillin 500 mg capsule 500 mg PO TID Qty: 15 0RF oxycodone-acetaminophen 5-325 mg tablet 1 tab PO Q6H PRN (Reason: pain) Qty: 10 0RF No Action xzdgfeg-cwwjdtnksobvq-guubdhoo [Excedrin Migraine] 250-250-65 mg tablet 2 tab PO Q6H PRN (Reason: Migraine Headache) sertraline 50 mg tablet 75 mg PO DAILY Qty: 90 1RF Rx Instructions: Start with 25 mg (1/2 tab) for a week; then increase to 50 mg (1 tab) for a weeek; then increase to 75 mg (1.5 tab) atorvastatin 40 mg tablet 40 mg PO BEDTIME Qty: 90 2RF carvedilol 12.5 mg tablet 12.5 mg PO BID Qty: 180 3RF Rx Instructions: must administer with a meal/food diazepam 10 mg tablet 10 mg PO BEDTIME Qty: 30 1RF quetiapine 100 mg tablet 100 mg PO BEDTIME Qty: 90 0RF Patient Comments: Just picked up the RX this week. Has not started it. Rx Instructions: APPT DUE W/PCP PRIOR TO END OF RX/FUTURE FILLS. PLEASE CALL TO SCHEDULE APPT. THANKS 08/13/22 chlorhexidine gluconate 0.12 % mouthwash 15 ml mucous membrane DAILY Qty: 473 5RF Referrals: Calos Staton MD [Primary Care Provider] - Stand Alone Forms: Patient Portal/API
[2022-09-28] MEDS: OXYCODONE/APAP 5/325 PREPACK 1 BOTTLE MISC (23:26)
[2022-09-28] MEDS: ONDANSETRON 4 MG ODT PREPACK 1 BOTTLE MISC (23:26)
[2022-09-28] MEDS: AMOXICILLIN 250 MG CAPSULE 500 MG PO (23:27)
[2022-09-28] MEDS: IBUPROFEN 400 MG TABLET PO (23:27)
[2022-09-28] MEDS: OXYCODONE/ACETAMINOPHEN 5/325 TABLET 2 TAB PO (23:27)
[2022-09-28] MEDS: ONDANSETRON 4 MG ODT SL (23:27)
[2022-09-28 23:38] VITALS: BP 162/101; PULSE 86; RESP 16; O2SAT 98
== END 2022-09-28 23:43 | disposition home or self-care (01) ==
PROVIDERS: Emergency Provider Emergency Medicine; PCP Student in an Organized Health Care Education/Training Program
DX: K04.7 Periapical abscess without sinus (principal); S02.5XXA Fracture of tooth (traumatic), initial encounter for closed fracture
CPT/HCPCS: 99283

== ENCOUNTER → 2023-08-07 14:09 | Outpatient (CLI) | payer OTHER, MEDICAID, SELFPAY ==
--- NOTE | 2023-08-07 14:10 | DI.CT.S_ITS ---
PROCEDURE: CT LUNG LOW DOSE SCREENING INDICATIONS: routine screening TECHNIQUE: Noncontrast 2.0-2.5 mm thick sections acquired from the pulmonary apices to the posterior costophrenic angles. 7 mm thick axial MIP, and 5 mm coronal and sagittal reformats were then acquired. For radiation dose reduction, the following was used: automated exposure control, adjustment of mA and/or kV according to patient size. COMPARISON: [facility], CT, CT ANGIO CHEST ABDOMEN PELVIS, 08/05/2020, 14:15. FINDINGS: Image quality: Diagnostic. Lower Neck: No enlarged lymph nodes. Thyroid: No thyroid nodules which require sonographic follow up, per consensus guidelines. Axillae: No enlarged lymph nodes. Chest Wall: Unremarkable. Bones: Unremarkable. Lungs and Pleura: No pneumothorax or pleural effusions. Minimal centrilobular emphysema. No consolidation or suspicious nodules. Heart: Heart size is normal. No pericardial effusion. Mild coronary calcifications. Thoracic Vessels: The aorta and pulmonary arteries demonstrate normal size. Mediastinum and [place]: No enlarged lymph nodes. Esophagus: No wall thickening. No hiatal hernia. Upper Abdomen: Suspected mild hepatic steatosis. Visualized upper abdomen solid organs and bowel loops otherwise appear normal. IMPRESSION: No suspicious pulmonary nodules. LUNG-RADS 1; continued annual screening, if eligible. Clinically Significant Non-pulmonary Findings: None. Approved by: Mario Alberto Guzman M.D. on 08/07/2023 at 15:57
== END ==
LOC: CT 14:10
PROVIDERS: PCP Family Medicine; Referring Provider Family Medicine; Visit Provider Family Medicine
DX: Z12.2 Encounter for screening for malignant neoplasm of respiratory organs (principal); F17.210 Nicotine dependence, cigarettes, uncomplicated
CPT/HCPCS: 71271